=== PATIENT | male | born 1945 | race Caucasian/White ===

== ENCOUNTER 2022-09-15 09:26 | Day surgery (SDC) | payer MEDICARE, OTHER ==
[~2022-09-15] VITALS: Ht 180.3 cm; Wt 110.2 kg
[2022-09-15] MEDS ORDERED: glycopyrrolate 0.2mg/ml inj IV ONE (09:50)
[2022-09-15] MEDS ORDERED: normal saline 1000ml 1,000 ML IV SCH (09:50)
[2022-09-15] MEDS ORDERED: fentaNYL/PF 50MCG/1 ML 2ML syringe IV ONE (09:50)
[2022-09-15] MEDS ORDERED: MIDAZolam 1mg/ml 10ml vial IV ONE (09:50)
[2022-09-15] MEDS ORDERED: SITA1TBM4 PO (10:08)
[2022-09-15] MEDS ORDERED: POTA-206 PO (10:08)
[2022-09-15] MEDS ORDERED: iron PO (10:08)
[2022-09-15] MEDS ORDERED: ASCO-294 PO (10:08)
[2022-09-15] MEDS ORDERED: RABE20TA31 PO (10:08)
[2022-09-15] MEDS ORDERED: SEMA1PEN3 SQ (10:08)
[2022-09-15] MEDS ORDERED: FURO40TA4 PO (10:08)
[2022-09-15] MEDS ORDERED: SIMV-42 PO (10:08)
[2022-09-15] MEDS ORDERED: MAGNESIUM CALCIUM PO (10:08)
[2022-09-15] MEDS ORDERED: TERA10CA4 PO (10:08)
[2022-09-15] MEDS ORDERED: INSU100V41 SQ (10:08)
[2022-09-15] MEDS ORDERED: AMIO200T61 PO (10:08)
[2022-09-15] MEDS ORDERED: APIX5TAB3 PO (10:08)
[2022-09-15] MEDS ORDERED: SACU1TAB PO (10:10)
[2022-09-15 10:14] VITALS: BP 107/67
--- NOTE | 2022-09-15 11:47 | NUR ---
Dr. Kaye at bedside, procedure cancelled due to EKG showing NSR.
== END 2022-09-15 11:47 | disposition home or self-care (01) ==
LOC: SSTAY O 09:26
PROVIDERS: ATTEND Internal Medicine Cardiovascular Disease
DX: I48.0 Paroxysmal atrial fibrillation (principal); Z53.8 Procedure and treatment not carried out for other reasons; I42.0 Dilated cardiomyopathy; I44.7 Left bundle-branch block, unspecified; I10 Essential (primary) hypertension; I25.118 Atherosclerotic heart disease of native coronary artery with other forms of angina pectoris; I42.8 Other cardiomyopathies; I49.3 Ventricular premature depolarization; E78.5 Hyperlipidemia, unspecified; E11.9 Type 2 diabetes mellitus without complications; F41.9 Anxiety disorder, unspecified; D64.9 Anemia, unspecified; Z98.890 Other specified postprocedural states; Z79.82 Long term (current) use of aspirin; Z79.899 Other long term (current) drug therapy; Z90.49 Acquired absence of other specified parts of digestive tract; Z88.8 Allergy status to other drugs, medicaments and biological substances
CPT/HCPCS: 93005; A4620; J7030

== ENCOUNTER 2022-09-19 06:40 | Day surgery (SDC) | payer MEDICARE, OTHER ==
[~2022-09-19] VITALS: Ht 180.3 cm; Wt 113.2 kg
[2022-09-19] VITALS (10 sets, daily range): BP systolic 100–126; BP diastolic 58–72
[~2022-09-19 06:40] MED LIST: AMIO200T61 PO; APIX5TAB3 PO; ASCO-294 PO; FURO40TA4 PO; INSU100V41 SQ; MAGNESIUM CALCIUM PO; POTA-206 PO; RABE20TA31 PO; SACU1TAB PO; SEMA1PEN3 SQ; SIMV-42 PO; SITA1TBM4 PO; TERA10CA4 PO; iron PO
[2022-09-19] MEDS ORDERED: sodium bicarbonate 1meq/ml syr 150 ML in dextrose 5%-water 850 ML IV ONE (07:15)
[2022-09-19] MEDS ORDERED: normal saline 1,000 ML IV SCH (07:15)
[2022-09-19] MEDS ORDERED: diphenhydrAMINE 25mg capsule PO PRN (07:15)
[2022-09-19] MEDS ORDERED: VANCOMYCIN 1,500MG in normal saline IV soln 300 ML IV ONE (07:25)
[2022-09-19] MEDS ORDERED: cefazolin 2gm/D5W 100mL 100 ML IV ONE (07:25)
[2022-09-19 07:42] LABS: BASOPHILS # (AUTO) 0.1 X10'3 (0-0.2); BASOPHILS % (AUTO) 0.9 % (0-1); EOSINOPHILS # (AUTO) 0.2 X10'3 (0-0.9); EOSINOPHILS % (AUTO) 3.1 % (0-6); HEMATOCRIT 34.3 % (42.0-52.0); LYMPHOCYTES # (AUTO) 1.2 X10'3 (1.1-4.8); LYMPHOCYTES % (AUTO) 17.8 % (21-51); MEAN CORPUSCULAR HEMOGLOBIN 25.8 PG (27.0-31.0); MEAN CORPUSCULAR VOLUME 80.6 FL (78-98); MEAN PLATELET VOLUME 8.3 FL (7.4-10.4); MONOCYTES # (AUTO) 0.5 X10'3 (0-0.9); MONOCYTES % (AUTO) 7.5 % (2-12); NEUTROPHILS # (AUTO) 4.6 X10'3 (1.8-7.7); NEUTROPHILS % (AUTO) 70.7 % (42-75); PLATELET COUNT 180 X10'3 (140-440); RED BLOOD COUNT 4.26 X10'6 (4.70-6.10); RED CELL DISTRIBUTION WIDTH 16.8 % (11.5-14.5); WHITE BLOOD COUNT 6.5 X10'3 (4.5-11.0)
[2022-09-19 07:59] LABS: ALBUMIN 3.6 G/DL (3.4-5.0); ANION GAP 9 (8-16); BLOOD UREA NITROGEN 22 MG/DL (7-18); CALCIUM 8.4 MG/DL (8.5-10.1); CHLORIDE 104 MMOL/L (99-107); GLUCOSE 75 MG/DL (70-104); MAGNESIUM 2.2 MG/DL (1.5-2.4); POTASSIUM 3.2 MMOL/L (3.5-5.1); SODIUM 139 MMOL/L (135-145); TOTAL CARBON DIOXIDE 25.9 MMOL/L (24-32); eGFR 73 ML/MIN
[2022-09-19] MEDS ORDERED: midazolam 1 mg/ML 2ml injection ONE ×4 (08:40→12:11)
[2022-09-19] MEDS ORDERED: verapamil 2.5 mg/ml inj IV ONE (08:40)
[2022-09-19] MEDS ORDERED: fentaNYL/PF 50MCG/1 ML 2ML syringe ONE (08:40)
[2022-09-19] MEDS ORDERED: nitroGLYCERIN-Tridil 50MG/D5W 250 ML IV ONE (08:40)
[2022-09-19] MEDS ORDERED: LIDOcaine 1% (10mg/ml) 2ml vial ONE (08:41)
[2022-09-19] MEDS ORDERED: iohexol 350 MG/ML 50ML vial IV ONE ×2 (08:41→10:32)
[2022-09-19] MEDS ORDERED: iohexol 350MG/ML 100ml bottle IV ONE (08:41)
[2022-09-19] MEDS ORDERED: heparin 1,000unit/ml 10ml vial 10 ML ONE (08:41)
[2022-09-19] MEDS ORDERED: vancomycin 1,000mg inj ONE (08:42)
[2022-09-19] MEDS ORDERED: LIDOCAINE 2%/EPI 1:100,000 inj. Multi-dose 20 ML VIAL ONE (08:42)
--- NOTE | 2022-09-19 12:45 | NUR ---
Report received from Hari CCL RN, Vasc band with 12ml (Hari RN had been removing pressure form vasc band while pt was in CCL for ICD procedure.) Site stable, no bleeding, bruising or hematoma noted.
[2022-09-19] MEDS ORDERED: HYDROcodone/acetaminophen 10/325mg tab PO PRN (13:20)
[2022-09-19] MEDS ORDERED: proCHLORperazine 10 MG/2 ml inj IV PRN (13:20)
[2022-09-19] MEDS ORDERED: ondansetron/PF 4mg/2ml inj IV PRN (13:20)
[2022-09-19] MEDS ORDERED: HYDROcodone/acetaminophen 5mg/325mg tablet PO PRN (13:20)
== END 2022-09-19 16:00 | disposition home or self-care (01) ==
LOC: SSTAY O 06:40
PROVIDERS: ATTEND Internal Medicine Cardiovascular Disease
DX: I42.0 Dilated cardiomyopathy (principal); I44.7 Left bundle-branch block, unspecified; I25.118 Atherosclerotic heart disease of native coronary artery with other forms of angina pectoris; I11.0 Hypertensive heart disease with heart failure; I50.23 Acute on chronic systolic (congestive) heart failure; I48.0 Paroxysmal atrial fibrillation; I49.3 Ventricular premature depolarization; E78.5 Hyperlipidemia, unspecified; E11.9 Type 2 diabetes mellitus without complications; F41.9 Anxiety disorder, unspecified; D64.9 Anemia, unspecified; Z79.01 Long term (current) use of anticoagulants; Z79.899 Other long term (current) drug therapy; Z90.49 Acquired absence of other specified parts of digestive tract; Z98.890 Other specified postprocedural states; Z88.8 Allergy status to other drugs, medicaments and biological substances
CPT/HCPCS: 33249; 36415; 71045; 80048; 82948; 83735; 85025; 85610; 93005; 93458; 99152; 99153; C1769; C1882; C1894; C1895; C1898; C1900; J1644; J2250; J3010; J3370; J3490; J7030; J7040; J7070; Q0163; Q9967; A4615; A6258; A6402